=== PATIENT | male | born 1975 | race Two or more races ===

== ENCOUNTER 2021-02-06 22:47 | Emergency (ER) | payer SELFPAY ==
[~2021-02-06] VITALS: Ht 182.9 cm; Wt 102.1 kg
[2021-02-06 22:48] VITALS: BP 147/111
[2021-02-07 00:23] LABS: Albumin 3.8 g/dL (3.4-5.0); BUN/Creatinine Ratio 9.2; Calcium 8.8 mg/dL (8.5-10.1); Potassium 4.3 mmol/L (3.5-5.1)
[2021-02-07 00:25] LABS: Bilirubin, Total 0.8 mg/dL (0.2-1.0); Total Protein 7.7 g/dL (6.4-8.2)
== END 2021-02-07 00:33 | disposition left against medical advice (07) ==
LOC: ER 22:47
DX: R10.9 Unspecified abdominal pain (principal); R11.2 Nausea with vomiting, unspecified; Z53.21 Procedure and treatment not carried out due to patient leaving prior to being seen by health care provider
CPT/HCPCS: 36415; 80053; 83690